=== PATIENT | male | born 1950 | race Caucasian/White ===

== ENCOUNTER → 2019-07-14 | Outpatient (CLI) | payer MEDICARE, OTHER ==
[~2019-07-14] MED LIST: AMOXICILLIN875 MG PO; CIALIS PO; CIPRO HC OTIC S10 ML OT; PREVACID 30MG30 M1 PO; ULTRAM 50MG TAB50 MG PO
== END ==
LOC: COL.RAD 09:30
DX: M25.511 Pain in right shoulder (principal)
CPT/HCPCS: Q9967

== ENCOUNTER 2020-09-24 07:55 | Outpatient (CLI) | payer MEDICARE ==
[~2020-09-24] VITALS: Ht 162.6 cm; Wt 71.5 kg
[2020-09-24] MEDS ORDERED: NEXIUM 40MG40 MG PO (09:24)
[2020-09-24] MEDS ORDERED: DOXYCYCLINE 10100 MG PO (09:24)
[2020-09-24] MEDS ORDERED: CELEBREX 200MG200 MG PO (09:24)
[2020-09-24] MEDS ORDERED: SYSTANE 0.4%-0.1 SOL OP (09:26)
[2020-09-24] MEDS ORDERED: MELATONIN5 M1 PO (09:27)
[2020-09-24] MEDS ORDERED: ROXICODONE 55 MG/TAB PO (09:27)
[2020-09-24 09:33] LABS: BASO # 0.1 (0.0-0.2); BASO % 0.9 % (0.0-2.0); EOS # 0.3 (0.0-0.7); EOS % 4.3 % (0-4.0); GRAN # 3.7 (1.4-6.5); GRAN % 63.7 % (42.2-75.2); HEMATOCRIT 41.2 % (42.0-52.0); HEMOGLOBIN 13.5 g/dl (13.5-18.0); LYMPH # 1.3 (1.2-3.4); LYMPH % 22.5 % (20.0-51.0); MEAN CELL VOLUME 91 fl (80.0-100.0); MEAN CORPUSCULAR HEMOGLOBIN 30 pg (27.0-31.0); MEAN CORPUSCULAR HGB CONC 33 g/dl (33.0-37.0); MEAN PLATELET VOLUME 9.2 fl (7.4-10.4); MONO # 0.5 (0.1-0.6); MONO % 8.3 % (1.7-9.3); PLATELET COUNT 271 K/mm3 (130-400); RED BLOOD COUNT 4.54 M/mm3 (4.20-5.60); REDCELL DISTRIBUTION WIDTH-CV 14.1 % (11.5-14.5)
[2020-09-24 09:40] VITALS: BP 132/91; PULSE 71; TEMP 98.1
[2020-09-24 09:46] LABS: ALANINE AMINOTRANSFERASE 15 U/L (4-49); ALKALINE PHOSPHATASE 103 U/L (50-136); ANION GAP 5 mmol/L (7-16); AST,SGOT 24 U/L (15-37); BILIRUBIN,TOTAL 0.6 mg/dL (0.0-1.0); BLOOD UREA NITROGEN 25 mg/dL (9-20); CALCIUM 9.2 mg/dL (8.4-10.2); CARBON DIOXIDE 25 mmol/L (22-30); CHLORIDE 109 mmol/L (98-107); CREATININE, serum 0.87 (0.66-1.25); GLUCOSE 91 mg/dL (74-106); POTASSIUM 4.1 mmol/L (3.4-5.0); SODIUM 138 mmol/L (137-145)
[2020-09-24 09:49] LABS: C-REACTIVE PROTEIN < 0.5 mg/dL (0.0-0.9)
[2020-09-24 09:54] LABS: ERYTHROCYTE SEDIMENTATION RATE 7 mm/hr (0-30)
== END 2020-09-24 10:26 | disposition home or self-care (01) ==
LOC: EUO 07:55
PROVIDERS: Emergency Medicine
DX: Z45.2 Encounter for adjustment and management of vascular access device (principal); A49.8 Other bacterial infections of unspecified site; Z96.611 Presence of right artificial shoulder joint; T84.59XA Infection and inflammatory reaction due to other internal joint prosthesis, initial encounter; Z79.2 Long term (current) use of antibiotics
CPT/HCPCS: C1751; C1892; J0696

== ENCOUNTER 2020-10-24 10:50 | Outpatient (CLI) | payer MEDICARE ==
[~2020-10-24] VITALS: Ht 162.6 cm; Wt 72.6 kg
[~2020-10-24 10:50] MED LIST changes: +CELEBREX 200MG200 MG PO; +DOXYCYCLINE 10100 MG PO; +MELATONIN5 M1 PO; +NEXIUM 40MG40 MG PO; +ROXICODONE 55 MG/TAB PO; +SYSTANE 0.4%-0.1 SOL OP
--- NOTE | 2020-10-24 11:10 | NUR ---
Here for a PICC evaluation. PICC intact left upper arm and flushed with 10ml normal saline with some resistance. patient reported unable to flush at [place] and medication given without success. reported chest x ray done with no kinks noted. sterile dressing change done with insertion site cleansed with chloraprep x 1, chorhexidine impregnated disk applied, skin prep, stat lock, and tegaderm applied. port flushed with 10ml normal saline with some resistance noted. no blood return noted. will advise cath michael at this time.
[2020-10-24] MEDS ORDERED: HEPARIN LOCK F1 U/ML IV (11:42)
[2020-10-24] MEDS ORDERED: ROCEPHIN 2GM VIAL21 IJ (11:42)
[2020-10-24 11:43] VITALS: BP 133/88; PULSE 77; TEMP 97.8
--- NOTE | 2020-10-24 13:56 | NUR ---
Cath flow administered and allowed to dwell in PICC line x30 mins. After dwell time, unable to obtain blood flow. KENN Cheng states she will reassess after additional 30 min dwell time. KENN Cheng is now in room to complete exchange of PICC line.
--- NOTE | 2020-10-24 14:40 | NUR ---
Pt was escorted out of dept by KENN Cheng RN, gait steady.
== END 2020-10-24 14:40 | disposition home or self-care (01) ==
LOC: EUO 10:50
DX: Z45.2 Encounter for adjustment and management of vascular access device (principal); Z79.2 Long term (current) use of antibiotics; A49.8 Other bacterial infections of unspecified site; T84.59XA Infection and inflammatory reaction due to other internal joint prosthesis, initial encounter; Z96.611 Presence of right artificial shoulder joint
CPT/HCPCS: C1751; C1892; J2997